=== PATIENT | male | born 1990 | race Two or more races ===

== ENCOUNTER 2020-04-08 09:30 | Emergency (ER) | payer OTHER ==
[~2020-04-08] VITALS: Ht 182.9 cm; Wt 68.0 kg
[2020-04-08] MEDS ORDERED: ZITHROMAX500 MG PO (15:14)
[2020-04-08] MEDS ORDERED: AIRBORNE EFFER1 EACH PO (15:14)
[2020-04-08] MEDS ORDERED: DECADRON6 MG PO (15:14)
[2020-04-08] MEDS ORDERED: SYMBICORT 16010.2 GM IH (15:14)
== END 2020-04-08 16:21 | disposition home or self-care (01) ==
LOC: ER 09:30
DX: U07.1 COVID-19 (principal); J06.9 Acute upper respiratory infection, unspecified; B34.9 Viral infection, unspecified

== ENCOUNTER 2020-07-31 10:46 | Emergency (ER) | payer OTHER ==
[~2020-07-31] VITALS: Ht 182.9 cm; Wt 68.0 kg
[~2020-07-31 10:46] MED LIST: AIRBORNE EFFER1 EACH PO; DECADRON6 MG PO; SYMBICORT 16010.2 GM IH; ZITHROMAX500 MG PO
[2020-07-31] MEDS ORDERED: KETO10TA2 PO (14:13)
== END 2020-07-31 14:32 | disposition home or self-care (01) ==
LOC: ER 10:46
DX: S83.8X2A Sprain of other specified parts of left knee, initial encounter (principal); X50.0XXA Overexertion from strenuous movement or load, initial encounter; Y93.01 Activity, walking, marching and hiking; Y92.89 Other specified places as the place of occurrence of the external cause; Y99.8 Other external cause status